=== PATIENT | male | born 1975 | race Caucasian/White ===

== ENCOUNTER 2025-01-23 22:22 | Inpatient (IN) | payer BC ==
[2025-01-23 22:52] VITALS: BMI 27.9
[2025-01-24] MEDS ORDERED: guaiFENesin 600 MG TABLET.ER (FP) PO PRN (00:22)
[2025-01-24] MEDS ORDERED: LOPERAMIDE HCL 2 MG CAPSULE PO PRN (00:22)
[2025-01-24] MEDS ORDERED: BENZOCAINE/MENTHOL (CHLORASEPTIC ) LOZENGE MM PRN (00:22)
[2025-01-24] MEDS ORDERED: BENZONATATE 200 MG CAPSULE PO PRN (00:22)
[2025-01-24] MEDS ORDERED: NALOXONE (NARCAN) HCL 4 MG/0.1 ML SPRAY NS PRN (00:22)
[2025-01-24] MEDS ORDERED: POLYETHYLENE GLYCOL (HEALTHYLAX) 3350 17 GM PACKET PO PRN (00:22)
[2025-01-24] MEDS ORDERED: IBUPROFEN 400 MG TABLET (FP) PO PRN (00:22)
[2025-01-24] MEDS ORDERED: MAG HYDROX/AL HYDROX/SIMETH 30 ML UNIT-DOSE CUP PO PRN (00:22)
[2025-01-24] MEDS ORDERED: ONDANSETRON *ODT* 4 MG TABLET SL PRN (00:22)
[2025-01-24] MEDS ORDERED: MAGNESIUM HYDROX 2400MG/30ML ORAL SUSPENSION 30 ML CUP PO PRN (00:22)
[2025-01-24] MEDS ORDERED: NICOTINE POLACRILEX 2 MG GUM BUC PRN (00:22)
[2025-01-24] MEDS ORDERED: BISMUTH SUBSALICYLATE 524 MG/30 ML PO PRN (00:22)
[2025-01-24] MEDS ORDERED: DICYCLOMINE HCL 10 MG CAPSULE PO PRN (00:22)
[2025-01-24] MEDS ORDERED: chlordiazePOXIDE HCL 25 MG CAPSULE ONE (01:57)
[2025-01-24] MEDS: chlordiazePOXIDE HCL 25 MG CAPSULE PO PRN (01:58)
[2025-01-24] MEDS: METHOCARBAMOL 500 MG TABLET PO PRN (02:17)
[2025-01-24] MEDS: IBUPROFEN 600 MG TABLET (FP) PO PRN (02:17)
[2025-01-24] MEDS: hydrOXYzine PAMOATE 25 MG CAPSULE (FP) PO PRN (02:18)
[2025-01-24] MEDS: chlordiazePOXIDE HCL 25 MG CAPSULE PO SCH (05:45)
[2025-01-24] MEDS: NICOTINE 14 MG/24 HOURS TOPICAL PATCH TD SCH (10:04)
[2025-01-24] MEDS: PRENATAL VITAMINS W/ FOLIC ACID TABLET (FP) PO SCH (10:07)
[2025-01-24] MEDS: levETIRAcetam 500 MG TABLET (FP) PO SCH (10:46)
[2025-01-24] MEDS: cloNIDine HCL 0.1 MG TABLET PO PRN (17:01)
[2025-01-24] MEDS: ACETAMINOPHEN 325 MG TABLET (FP) PO PRN (17:02)
[2025-01-24] MEDS ORDERED: GEMFIBROZIL 600 MG TABLET (FP) PO SCH (22:00)
[2025-01-24] MEDS: THIAMINE 100 MG TABLET PO SCH (22:01)
[2025-01-24] MEDS: MELATONIN 5 MG TABLETS PO SCH (22:03)
[2025-01-25] MEDS: chlordiazePOXIDE HCL 25 MG CAPSULE PO SCH (05:21)
[2025-01-25] MEDS: GEMFIBROZIL 600 MG TABLET (FP) PO SCH (06:04)
[2025-01-25 09:23] LABS: MEAN PLT VOLUME 13.5 fl (9.4-12.4); PLATELET COUNT 116 x10^3/uL (163-337)
[2025-01-25 09:25] LABS: HEMATOCRIT 35.2 % (40.1-51.0); HEMOGLOBIN 12.1 g/dL (13.7-17.5); MCHC 34.4 g/dl (32.3-36.5); MEAN CELL VOLUME 104.8 fl (79.0-92.2); RDW 13.6 % (12.1-15.9)
[2025-01-25 09:27] LABS: POTASSIUM 3.3 mmol/L (3.5-5.1)
[2025-01-25 10:01] LABS: CALCIUM 8.9 mg/dL (8.5-10.1)
[2025-01-25 10:02] LABS: ALBUMIN 3.2 g/dl (3.4-5.0); BLOOD UREA NITROGEN 8.8 mg/dL (7-18)
[2025-01-25 10:05] LABS: CREATININE 0.6 mg/dL (0.55-1.3)
[2025-01-25 10:07] LABS: TOT PROT 6.9 g/dl (6.4-8.2)
[2025-01-25] MEDS: POTASSIUM CHLORIDE ORAL LIQUID 20 MEQ/15 ML PO ONE (13:31)
[2025-01-25] MEDS: predniSONE 20 MG TABLET (UD) PO SCH (18:59)
[2025-01-25] MEDS: NAPROXEN 500 MG TABLET PO ONE (18:59)
[2025-01-25] MEDS: METHOCARBAMOL 500 MG TABLET PO ONE (19:00)
[2025-01-25] MEDS: METHYL SALICYLATE/MENTHOL 30 GM TUBE TP ONE (19:00)
[2025-01-25] MEDS: METHYL SALICYLATE/MENTHOL 30 GM TUBE TP SCH (21:20)
[2025-01-25] MEDS: LIDOCAINE PATCH REMOVAL MC SCH (21:58)
[2025-01-25] MEDS: NAPROXEN 500 MG TABLET PO SCH (22:00)
[2025-01-26] MEDS: METHOCARBAMOL 500 MG TABLET PO PRN (01:02)
[2025-01-26] MEDS: chlordiazePOXIDE HCL 10 MG CAPSULE PO PRN (01:04)
[2025-01-26] MEDS: chlordiazePOXIDE HCL 10 MG CAPSULE PO SCH (05:06)
[2025-01-26] MEDS: LIDOCAINE 5% TOPICAL PATCH TP SCH (10:01)
[2025-01-26 11:50] LABS: HEMATOCRIT 38.5 % (40.1-51.0); HEMOGLOBIN 12.8 g/dL (13.7-17.5); MCHC 33.2 g/dl (32.3-36.5); MEAN CELL VOLUME 107.8 fl (79.0-92.2); MEAN PLT VOLUME 13.9 fl (9.4-12.4); PLATELET COUNT 119 x10^3/uL (163-337); RDW 13.6 % (12.1-15.9)
[2025-01-26 11:51] LABS: POTASSIUM 5.4 mmol/L (3.5-5.1)
[2025-01-26 12:03] LABS: BLOOD UREA NITROGEN 7.9 mg/dL (7-18)
[2025-01-26 12:05] LABS: CALCIUM 10.1 mg/dL (8.5-10.1)
[2025-01-26 12:06] LABS: ALBUMIN 3.6 g/dl (3.4-5.0)
[2025-01-26 12:09] LABS: CREATININE 0.7 mg/dL (0.55-1.3)
[2025-01-26 12:10] LABS: BILIRUBIN,TOTAL 3.5 mg/dL (0.2-1)
[2025-01-26 12:11] LABS: TOT PROT 7.6 g/dl (6.4-8.2)
[2025-01-27] MEDS: chlordiazePOXIDE HCL 10 MG CAPSULE PO SCH (05:36)
[2025-01-27 09:07] VITALS: BP 121/79; PULSE 84; RESP 18; TEMP 97.6
[2025-01-28] MEDS ORDERED: chlordiazePOXIDE HCL 10 MG CAPSULE PO ONE (05:00)
== END 2025-01-27 09:38 | disposition home or self-care (01) | DRG 775 ==
LOC: YASAS 22:22 → Y3N 01-24 01:47
PROVIDERS: ADMIT Allergy & Immunology; ATTEND Allergy & Immunology
PROC: HZ2ZZZZ Detoxification Services for Substance Abuse Treatment (ICD-10-PCS; principal; 2025-01-24)
DX: F10.230 Alcohol dependence with withdrawal, uncomplicated (principal); E87.6 Hypokalemia; E78.1 Pure hyperglyceridemia; G40.909 Epilepsy, unspecified, not intractable, without status epilepticus; R74.01 Elevation of levels of liver transaminase levels
CPT/HCPCS: 36415; 71046-TC-FY; 80053; 80305; 80307; 84132; 85027; 86780; 93005; 93010